=== PATIENT | female | born 1980 | race African-American/Black ===

== ENCOUNTER 2021-05-28 08:27 | Emergency (ER) | payer MEDICAID ==
[~2021-05-28] VITALS: Ht 157.5 cm; Wt 53.0 kg
[2021-05-28 08:30] VITALS: BP 94/46
[2021-05-28] MEDS ORDERED: ACETAMINOPHEN 325MG TABLET PO STA (09:27)
[2021-05-28] MEDS ORDERED: IPRATROPIUM/ALBUTEROL 0.5-3(2.5)MG/3ML NEB HHN ONE (10:15)
[2021-05-28 10:22] LABS: CHLORIDE 106 mEq/L (98-107)
[2021-05-28 10:24] LABS: BASOPHILS % 0.5 % (0.0-2.0); HEMATOCRIT. 39.4 % (36.0-48.0); HEMOGLOBIN. 14.2 g/dL (12.0-16.0); LYMPHOCYTES % 26.6 % (20.0-50.0); MEAN CORPUSCULAR HEMOGLOBIN 34.7 pg (28.0-32.0); MEAN CORPUSCULAR VOLUME 96.3 fL (81.0-99.0); MEAN PLATELET VOLUME 9.4 fl (7.4-10.4); NEUTROPHILS % 64.9 % (40.0-76.0); PLATELET 277 x1000/uL (130-400); RED BLOOD CELL COUNT 4.09 mill/uL (4.2-5.4); RED CELL DISTRIBUTION WIDTH 12.5 % (11.6-14.6)
[2021-05-28 10:37] LABS: B-HCG QUANTITATIVE 2 mIU/mL (<3)
[2021-05-28 10:42] LABS: HCG SCREEN NEGATIVE
== END 2021-05-28 22:57 | disposition home or self-care (01) ==
LOC: ER 08:27
DX: R07.89 Other chest pain (principal); R10.13 Epigastric pain; R06.02 Shortness of breath
CPT/HCPCS: 36415; 71045; 80053; 83605; 83880; 84484; 84702; 84703; 85025; 85379; 93005; 99285

== ENCOUNTER 2022-02-06 17:44 | Emergency (ER) | payer MEDICAID ==
[~2022-02-06] VITALS: Ht 157.5 cm; Wt 52.2 kg
[2022-02-06 17:46] VITALS: BP 128/72
== END 2022-02-06 21:30 | disposition left against medical advice (07) ==
LOC: ER 17:44
DX: Z53.21 Procedure and treatment not carried out due to patient leaving prior to being seen by health care provider (principal)